=== PATIENT | female | born 1975 | race Caucasian/White ===

== ENCOUNTER 2018-02-22 23:37 | Emergency (ER) | payer OTHER ==
[2018-02-23] MEDS: LIDOCAINE 2% (MDV) 20 ML INJ INJ (04:08)
== END 2018-02-23 05:13 | disposition home or self-care (01) ==
LOC: FTE 23:37
DX: S61.215A Laceration without foreign body of left ring finger without damage to nail, initial encounter (principal); F17.210 Nicotine dependence, cigarettes, uncomplicated; W26.0XXA Contact with knife, initial encounter; Y92.9 Unspecified place or not applicable
CPT/HCPCS: 12002; 99283-25